=== PATIENT | male | born 1940 | race Caucasian/White ===

== ENCOUNTER 2018-08-23 09:53 | Inpatient (IN) | payer MEDICARE ==
[2018-08-23 09:53] VITALS: BMI 23.5
[2018-08-23] MEDS ORDERED: Sodium Chloride 0.9% 1,000 ML IV ONE (10:05)
[2018-08-23] MEDS ORDERED: Iohexol 240 (50 ml) PO ONE (10:07)
[2018-08-23] MEDS ORDERED: Morphine 4 MG/ML VIAL IV ONE (10:07)
[2018-08-23] MEDS ORDERED: Iohexol 240 (50 ml) ONE (10:35)
[2018-08-23 10:43] LABS: BASO # 0.1 K/uL (0.0-0.2); BASO % 0.6 % (0.0-2.0); EOS # 0.3 K/uL (0.0-0.7); EOS % 2.2 % (0.0-4.0); HEMOGLOBIN 14.4 g/dL (12.0-18.0); LYMPH # 1.8 K/uL (1.0-4.3); LYMPH % 15.6 % (20.0-40.0); MEAN CORPUSCULAR HEMOGLOBIN 28.5 pg (27.0-31.0); MEAN CORPUSCULAR HGB CONC 34.3 g/dL (33.0-37.0); MEAN PLATELET VOLUME 8.9 fL (7.2-11.7); MONO # 1.3 K/uL (0.0-0.8); MONO % 10.9 % (0.0-10.0); NEUT # 8.1 K/uL (1.8-7.0); NEUT % 70.7 % (50.0-75.0); NRBC % 0.1 % (0.0-2.0); RBC 5.06 Mil/uL (4.40-5.90); RED CELL DISTRIBUTION WIDTH 13.6 % (11.5-14.5); WHITE BLOOD COUNT 11.5 K/uL (4.8-10.8)
[2018-08-23 10:52] LABS: PROTHROMBIN TIME 10.9 SECONDS (9.7-12.2)
[2018-08-23 10:54] LABS: ALB/GLOB RATIO 1.3 (1.0-2.1); ALBUMIN 4.2 g/dL (3.5-5.0); ALT/SGPT 22 U/L (21-72); AST/SGOT 24 U/L (17-59); BLOOD UREA NITROGEN 14 mg/dL (9-20); CALCIUM 9.3 mg/dl (8.6-10.4); GFR NON-AFRICAN AMERICAN > 60; LIPASE 75 U/L (23-300)
--- NOTE | 2018-08-23 11:08 | C.PDOC ---
History Of Present Illness 77 y/o male, with history of right inguinal hernia, presents to ED complaining of abdominal pain. Patient states he woke up this morning with diffuse abdominal pain and bloating, with some difficulty passing gas. Patient denies vomiting. Time Seen by Provider: 08/23/18 10:00 Chief Complaint (Nursing): Abdominal Pain History Per: Patient History/Exam Limitations: no limitations Onset/Duration Of Symptoms: Hrs Current Symptoms Are (Timing): Still Present Past Medical History Reviewed: Historical Data, Nursing Documentation, Vital Signs Vital Signs: Last Vital Signs Temp 98.4 F 08/23/18 09:59 Pulse 87 08/23/18 09:59 Resp 14 08/23/18 09:59 BP 165/85 H 08/23/18 09:59 Pulse Ox 99 08/23/18 09:59 - Medical History PMH: Asthma (CHILDHOOD), Pneumonia (SEP 2013) Surgical History: Endoscopy, Tonsillectomy (CHILDHOOD) - [facility] Procedures LYMPHATIC STRUCT BIOPSY (02/14/14) Family History: States: No Known Family Hx - Social History Hx Tobacco Use: No Hx Alcohol Use: No Hx Substance Use: No - Immunization History Hx Tetanus Toxoid Vaccination: No Hx Influenza Vaccination: No Hx Pneumococcal Vaccination: No Review Of Systems Except As Marked, All Systems Reviewed And Found Negative. Gastrointestinal: Positive for: Abdominal Pain. Negative for: Vomiting Physical Exam - Physical Exam Appears: Non-toxic, No Acute Distress Skin: Warm, Dry Head: Atraumatic, Normacephalic Eye(s): bilateral: Normal Inspection Oral Mucosa: Moist Neck: Normal ROM Chest: Symmetrical Cardiovascular: Rhythm Regular, No Murmur Respiratory: Normal Breath Sounds, No Rales, No Rhonchi, No Wheezing Gastrointestinal/Abdominal: Bowel Sounds (normal), Soft, Tenderness (diffuse upper abdominal tenderness), No Guarding, No Rebound, Hernia (Right inguinal hernia partially reducible) Extremity: Bilateral: Atraumatic, Normal Color And Temperature, Normal ROM Neurological/Psych: Oriented x3, Normal Speech ED Course And Treatment - Laboratory Results Result Diagrams: 08/23/18 10:30 08/23/18 10:30 O2 Sat by Pulse Oximetry: 99 (RA) Pulse Ox Interpretation: Normal - CT Scan/US CT Abd/Pel Other Rad Studies (CT/US): Read By Radiologist, Radiology Report Reviewed CT/US Interpretation: FINDINGS: LOWER THORAX: Unremarkable. LIVER: Unremarkable. No gross lesion or ductal dilatation. GALLBLADDER AND BILE DUCTS: Unremarkable. PANCREAS: Unremarkable. No gross lesion or ductal dilatation. SPLEEN: Unremarkable. ADRENALS: Unremarkable. No mass. KIDNEYS AND URETERS: Unremarkable. No hydronephrosis. No solid mass. VASCULATURE: Unremarkable. No aortic aneurysm. There is minimal atherosclerotic calcification of the abdominal aorta. BOWEL: No bowel obstruction. Multiple herniated small bowel loops into the right hemiscrotum including the terminal ileum. Mild mesenteric edema in the segment of mesentery herniated into the right scrotum. Small hernia of the descending/sigmoid colonic junction into the left inguinal canal. Again, no evidence of obstruction. Mild sigmoid diverticulosis without evidence of diverticulitis. Atypical configuration of the large intestine with the cecum located in the pelvis and the distal transverse and descending colon displaced to the left abdomen. This is unchanged from prior examination, and likely represents a developmental variant. APPENDIX: Normal appendix. PERITONEUM: No ascites or pneumoperitoneum. Bilateral inguinal hernia. See above. LYMPH NODES: Unremarkable. No enlarged lymph nodes. BLADDER: Unremarkable. REPRODUCTIVE: Unremarkable prostate. BONES: No acute fracture. OTHER FINDINGS: None. IMPRESSION: Bilateral inguinal hernias. Multiple loops of small bowel in the right hemiscrotum with mild edema of the herniated mesentery. No bowel obstruction. Herniated loop of large intestine at junction of descending and sigmoid colon without evidence of obstruction. No other acute abnormality. Medical Decision Making Medical Decision Making: Plan: --CT Abd/Pel --Bloodwork --Urinalysis --Morphine 2 mg IVP --Omnipaque 50 ml PO --IV fluids 1L --Zofran 4 mg IVP 13:36 - Discussed with Dr. Harris (Surgery) who recommended to admit patient. Disposition Doctor Will See Patient In The: Hospital - Disposition Disposition: HOSPITALIZED Disposition Time: 16:00 Condition: GUARDED - POA Present On Arrival: None - Clinical Impression Clinical Impression: Abdominal pain, Inguinal hernia - Scribe Statement The provider has reviewed the documentation as recorded by the Arcelia Miller Provider Attestation: All medical record entries made by the Arcelia were at my direction and persona lly dictated by me. I have reviewed the chart and agree that the record accurately reflects my personal performance of the history, physical exam, medical decision making, and the department course for this patient. I have also personally directed, reviewed, and agree with the discharge instructions and disposition.
[2018-08-23] MEDS ORDERED: Iohexol 350mg/ml 100 ML ONE (11:24)
[2018-08-23 12:26] LABS: URINE BILIRUBIN NEGATIVE (NEGATIVE); URINE BLOOD NEGATIVE (NEGATIVE); URINE CLARITY Clear (Clear); URINE COLOR Straw (YELLOW); URINE GLUCOSE (UA) NORMAL (Normal); URINE LEUKOCYTE ESTERASE NEG Leu/uL (Negative); URINE PROTEIN NEGATIVE (NEGATIVE); URINE UROBILINOGEN NORMAL mg/dL (0.2-1.0)
--- NOTE | 2018-08-23 13:19 | CT ---
Date of service: 08/23/2018 PROCEDURE: CT Abdomen and Pelvis with contrast HISTORY: abd pain COMPARISON: 11/23/2012 TECHNIQUE: Contrast dose: 100 mL Visipaque 320 Radiation dose: Total exam DLP = 690.77 mGy-cm. This CT exam was performed using one or more of the following dose reduction techniques: Automated exposure control, adjustment of the mA and/or kV according to patient size, and/or use of iterative reconstruction technique. FINDINGS: LOWER THORAX: Unremarkable. LIVER: Unremarkable. No gross lesion or ductal dilatation. GALLBLADDER AND BILE DUCTS: Unremarkable. PANCREAS: Unremarkable. No gross lesion or ductal dilatation. SPLEEN: Unremarkable. ADRENALS: Unremarkable. No mass. KIDNEYS AND URETERS: Unremarkable. No hydronephrosis. No solid mass. VASCULATURE: Unremarkable. No aortic aneurysm. There is minimal atherosclerotic calcification of the abdominal aorta. BOWEL: No bowel obstruction. Multiple herniated small bowel loops into the right hemiscrotum including the terminal ileum. Mild mesenteric edema in the segment of mesentery herniated into the right scrotum. Small hernia of the descending/sigmoid colonic junction into the left inguinal canal. Again, no evidence of obstruction. Mild sigmoid diverticulosis without evidence of diverticulitis. Atypical configuration of the large intestine with the cecum located in the pelvis and the distal transverse and descending colon displaced to the left abdomen. This is unchanged from prior examination, and likely represents a developmental variant. APPENDIX: Normal appendix. PERITONEUM: No ascites or pneumoperitoneum. Bilateral inguinal hernia. See above. LYMPH NODES: Unremarkable. No enlarged lymph nodes. BLADDER: Unremarkable. REPRODUCTIVE: Unremarkable prostate BONES: No acute fracture. OTHER FINDINGS: None. IMPRESSION: Bilateral inguinal hernias. Multiple loops of small bowel in the right hemiscrotum with mild edema of the herniated mesentery. No bowel obstruction. Herniated loop of large intestine at junction of descending and sigmoid colon without evidence of obstruction. No other acute abnormality.
[2018-08-23] MEDS ORDERED: Piperacillin/Tazobact 3.375 GM in Sodium Chloride 100 ML IVPB STA (13:40)
--- NOTE | 2018-08-23 14:51 | CP.PCM.CON ---
History of Present Illness - History of Present Illness History of Present Illness: Surgery Consult Note. Dr. Harris CC: B/L ventral hernias 77yo M with PMHx of B-Cell Lymphoma (s/p chemo x6 rounds w remission) here for evaluation of abdominal pain. Pain started this morning, located in the RLQ and right inguinal region. Patient states that he felt bloated this morning after eating breakfast. He reports having a right inguinal hernia for many years and has never caused him any pain until today. He is usually able to reduce the right inguinal hernia himself but was unable to do it this morning due to pain. He denies any nausea or vomiting. He does report flatus. Last BM was last night, non-bloody, normal caliber. Denies any fevers or chills. Currently, the abdominal pain has subsided and he states that his abdominal distention has also resolved. Denies any urinary complaints. No CP/SOB. In ED, CT w contrast was performed with evidence of b/l inguinal hernias R>L with associated bowel messentary edema. General Surgery consult was obtained. PMD: Minerva Jang PMHx: B-Cell Lymphoma(s/p chemo x6 rounds w remission) PSHx: Right cervical lymph node excisional biopsy (B-Cell Lymphoma) Family Hx: non-contributory Social Hx: Lives with . Denies Tobacco use; Denies ETOH use; Denies illicit drugs NKDA Review of Systems - Review of Systems All systems: reviewed and no additional remarkable complaints except - Constitutional Constitutional: absent: Chills, Fever - EENT Eyes: absent: Change in Vision Ears: absent: Ear Discharge Nose/Mouth/Throat: absent: Nasal Discharge - Cardiovascular Cardiovascular: absent: Chest Pain, Dyspnea - Respiratory Respiratory: absent: Cough, Dyspnea - Gastrointestinal Gastrointestinal: Abdominal Pain, Bloating. absent: Diarrhea, Hematemesis, Hematochezia, Nausea, Vomiting - Genitourinary Genitourinary: absent: Difficulty Urinating, Dysuria Past Patient History - Past Medical History & Family History Past Medical History?: Yes Past Family History: Reviewed and not pertinent - Past Social History Smoking Status: Never Smoked Alcohol: None Drugs: Denies Home Situation {Lives}: With Family - PULMONARY Hx Asthma: Yes (CHILDHOOD) Hx Pneumonia: Yes (SEP 2013) - MUSCULOSKELETAL/RHEUMATOLOGICAL Hx Musculoskeletal Disorders: Yes Hx Degenerative Joint Disease: Yes Hx Osteoarthritis: Yes - GASTROINTESTINAL Hx Gastrointestinal Disorders: Yes Hx Gastroesophageal Reflux: Yes - PSYCHIATRIC Hx Substance Use: No - SURGICAL HISTORY Hx Tonsillectomy: Yes (CHILDHOOD) - ANESTHESIA Hx Anesthesia: Yes Hx Anesthesia Reactions: No Meds Allergies/Adverse Reactions: Allergies Allergy/AdvReac Type Severity Reaction Status Date / Time No Known Allergies Allergy Verified 06/30/14 20:52 - Medications Medications: Current Medications Sodium Chloride (Sodium Chloride 0.9%) 1,000 mls @ 100 mls/hr IV .Q10H ONE Stop: 08/23/18 20:04 Last Admin: 08/23/18 10:05 Dose: 100 mls/hr Physical Exam - Constitutional Appears: Well, Non-toxic, No Acute Distress - Head Exam Head Exam: ATRAUMATIC, NORMAL INSPECTION, NORMOCEPHALIC - Eye Exam Eye Exam: EOMI, Normal appearance. absent: Scleral icterus - ENT Exam ENT Exam: Mucous Membranes Moist - Respiratory Exam Respiratory Exam: Clear to Auscultation Bilateral, NORMAL BREATHING PATTERN. absent: Accessory Muscle Use, Respiratory Distress - Cardiovascular Exam Cardiovascular Exam: absent: JVD - GI/Abdominal Exam GI & Abdominal Exam: Hernia (right inguinal hernia reducible, no skin changes. Left inguinal hernia. ), Soft. absent: Distended, Firm, Guarding, Tenderness - Exam Exam: NORMAL INSPECTION. absent: Scrotal Swelling - Extremities Exam Extremities exam: Positive for: normal inspection. Negative for: calf tenderness - Neurological Exam Neurological exam: Alert, Oriented x3 - Psychiatric Exam Psychiatric exam: Normal Affect, Normal Mood - Skin Skin Exam: Dry, Intact, Normal Color, Warm Results - Vital Signs Recent Vital Signs: Last Vital Signs Temp 98.4 F 08/23/18 09:59 Pulse 95 H 08/23/18 14:31 Resp 18 08/23/18 14:31 BP 153/95 H 08/23/18 14:31 Pulse Ox 98 08/23/18 14:31 - Labs Result Diagrams: 08/23/18 10:30 08/23/18 10:30 Labs: Laboratory Results - last 24 hr 08/23/18 08/23/18 08/23/18 10:30 10:30 10:30 WBC 11.5 H RBC 5.06 Hgb 14.4 Hct 42.0 MCV 83.0 MCH 28.5 MCHC 34.3 RDW 13.6 Plt Count 230 MPV 8.9 Neut % (Auto) 70.7 Lymph % (Auto) 15.6 L [place] % (Auto) 10.9 H Eos % (Auto) 2.2 Baso % (Auto) 0.6 Neut # (Auto) 8.1 H Lymph # (Auto) 1.8 [place] # (Auto) 1.3 H Eos # (Auto) 0.3 Baso # (Auto) 0.1 PT 10.9 INR 1.0 APTT 31 Sodium 136 Potassium 3.8 Chloride 98 Carbon Dioxide 28 Anion Gap 14 BUN 14 Creatinine 0.8 Est GFR ( Amer) > 60 Est GFR (Non-Af Amer) > 60 Random Glucose 125 H Lactic Acid Calcium 9.3 Total Bilirubin 0.6 AST 24 ALT 22 Alkaline Phosphatase 104 Total Protein 7.4 Albumin 4.2 Globulin 3.2 Albumin/Globulin Ratio 1.3 Lipase 75 Urine Color Urine Clarity Urine pH Ur Specific [place] Urine Protein Urine Glucose (UA) Urine Ketones Urine Blood Urine Nitrate Urine Bilirubin Urine Urobilinogen Ur Leukocyte Esterase Urine WBC (Auto) Urine RBC (Auto) Blood Type 08/23/18 08/23/18 08/23/18 12:19 14:05 14:05 WBC RBC Hgb Hct MCV MCH MCHC RDW Plt Count MPV Neut % (Auto) Lymph % (Auto) [place] % (Auto) Eos % (Auto) Baso % (Auto) Neut # (Auto) Lymph # (Auto) [place] # (Auto) Eos # (Auto) Baso # (Auto) PT INR APTT Sodium Potassium Chloride Carbon Dioxide Anion Gap BUN Creatinine Est GFR ( Amer) Est GFR (Non-Af Amer) Random Glucose Lactic Acid 1.5 Calcium Total Bilirubin AST ALT Alkaline Phosphatase Total Protein Albumin Globulin Albumin/Globulin Ratio Lipase Urine Color Straw Urine Clarity Clear Urine pH 7.0 Ur Specific [place] 1.011 Urine Protein Negative Urine Glucose (UA) Normal Urine Ketones Negative Urine Blood Negative Urine Nitrate Negative Urine Bilirubin Negative Urine Urobilinogen Normal Ur Leukocyte Esterase Neg Urine WBC (Auto) < 1 Urine RBC (Auto) 1 Blood Type O POSITIVE Assessment & Plan - Assessment and Plan (Free Text) Assessment: 77yo M with b/l reducible inguinal hernias - CT abd/pelvis noted Plan: - NPO past mn - To OR tomorrow morning, 08/24 - f/u Cardiac clearance - f/u AM labs Further recs as per Dr. Steven Lyn PGY2 surgery
[2018-08-23] MEDS ORDERED: Piperacillin/Tazobact 3.375 gm 100 ML IVPB ONE (15:00)
--- NOTE | 2018-08-23 17:41 | RAD ---
Date of service: 08/23/2018 PROCEDURE: CHEST RADIOGRAPH, 1 VIEW HISTORY: admit COMPARISON: 02/10/2014 FINDINGS: LUNGS: Clear. PLEURA: No pneumothorax or pleural fluid seen. CARDIOVASCULAR: No aortic atherosclerotic calcification present. Normal. OSSEOUS STRUCTURES: No significant abnormalities. VISUALIZED UPPER ABDOMEN: Normal. OTHER FINDINGS: None. IMPRESSION: No active disease.
[2018-08-23] MEDS: Piperacillin/Tazobact 3.375 GM in Sodium Chloride 100 ML IVPB SCH (21:15)
--- NOTE | 2018-08-23 21:20 | CP.PCM.HP ---
Past Patient History - Past Medical History & Family History Past Medical History?: Yes Past Family History: Reviewed and not pertinent - Past Social History Smoking Status: Never Smoked Alcohol: None Drugs: Denies Home Situation {Lives}: With Family - PULMONARY Hx Asthma: Yes (CHILDHOOD) Hx Pneumonia: Yes (SEP 2013) - MUSCULOSKELETAL/RHEUMATOLOGICAL Hx Musculoskeletal Disorders: Yes Hx Degenerative Joint Disease: Yes Hx Osteoarthritis: Yes - GASTROINTESTINAL Hx Gastrointestinal Disorders: Yes Hx Gastroesophageal Reflux: Yes - PSYCHIATRIC Hx Substance Use: No - SURGICAL HISTORY Hx Tonsillectomy: Yes (CHILDHOOD) - ANESTHESIA Hx Anesthesia: Yes Hx Anesthesia Reactions: No Meds Allergies/Adverse Reactions: Allergies Allergy/AdvReac Type Severity Reaction Status Date / Time No Known Allergies Allergy Verified 06/30/14 20:52 Physical Exam - Constitutional Appears: Well - Head Exam Head Exam: ATRAUMATIC, NORMAL INSPECTION, NORMOCEPHALIC - Eye Exam Eye Exam: EOMI, Normal appearance, PERRL Pupil Exam: NORMAL ACCOMODATION, PERRL - ENT Exam ENT Exam: Mucous Membranes Moist, Normal Exam - Neck Exam Neck exam: Positive for: Normal Inspection - Respiratory Exam Respiratory Exam: Decreased Breath Sounds - Cardiovascular Exam Cardiovascular Exam: REGULAR RHYTHM, +S1, +S2 - GI/Abdominal Exam GI & Abdominal Exam: Diminished Bowel Sounds, Soft - Rectal Exam Rectal Exam: Deferred Results - Vital Signs Recent Vital Signs: Last Vital Signs Temp 98.1 F 08/23/18 16:44 Pulse 87 08/23/18 16:44 Resp 20 08/23/18 16:44 BP 153/82 H 08/23/18 16:44 Pulse Ox 99 08/23/18 17:09 - Labs Result Diagrams: 08/23/18 10:30 08/23/18 10:30 Labs: Laboratory Results - last 24 hr 08/23/18 08/23/18 08/23/18 10:30 10:30 10:30 WBC 11.5 H RBC 5.06 Hgb 14.4 Hct 42.0 MCV 83.0 MCH 28.5 MCHC 34.3 RDW 13.6 Plt Count 230 MPV 8.9 Neut % (Auto) 70.7 Lymph % (Auto) 15.6 L [place] % (Auto) 10.9 H Eos % (Auto) 2.2 Baso % (Auto) 0.6 Neut # (Auto) 8.1 H Lymph # (Auto) 1.8 [place] # (Auto) 1.3 H Eos # (Auto) 0.3 Baso # (Auto) 0.1 PT 10.9 INR 1.0 APTT 31 Sodium 136 Potassium 3.8 Chloride 98 Carbon Dioxide 28 Anion Gap 14 BUN 14 Creatinine 0.8 Est GFR ( Amer) > 60 Est GFR (Non-Af Amer) > 60 Random Glucose 125 H Lactic Acid Calcium 9.3 Total Bilirubin 0.6 AST 24 ALT 22 Alkaline Phosphatase 104 Total Protein 7.4 Albumin 4.2 Globulin 3.2 Albumin/Globulin Ratio 1.3 Lipase 75 Urine Color Urine Clarity Urine pH Ur Specific [place] Urine Protein Urine Glucose (UA) Urine Ketones Urine Blood Urine Nitrate Urine Bilirubin Urine Urobilinogen Ur Leukocyte Esterase Urine WBC (Auto) Urine RBC (Auto) Blood Type Antibody Screen 08/23/18 08/23/18 08/23/18 12:19 14:05 14:05 WBC RBC Hgb Hct MCV MCH MCHC RDW Plt Count MPV Neut % (Auto) Lymph % (Auto) [place] % (Auto) Eos % (Auto) Baso % (Auto) Neut # (Auto) Lymph # (Auto) [place] # (Auto) Eos # (Auto) Baso # (Auto) PT INR APTT Sodium Potassium Chloride Carbon Dioxide Anion Gap BUN Creatinine Est GFR ( Amer) Est GFR (Non-Af Amer) Random Glucose Lactic Acid 1.5 Calcium Total Bilirubin AST ALT Alkaline Phosphatase Total Protein Albumin Globulin Albumin/Globulin Ratio Lipase Urine Color Straw Urine Clarity Clear Urine pH 7.0 Ur Specific [place] 1.011 Urine Protein Negative Urine Glucose (UA) Normal Urine Ketones Negative Urine Blood Negative Urine Nitrate Negative Urine Bilirubin Negative Urine Urobilinogen Normal Ur Leukocyte Esterase Neg Urine WBC (Auto) < 1 Urine RBC (Auto) 1 Blood Type O POSITIVE Antibody Screen Negative
--- NOTE | 2018-08-24 00:49 | CON ---
DATE: 08/23/2018 CARDIOLOGY CONSULTATION REASON FOR CONSULTATION: Preoperative evaluation. HISTORY OF PRESENT ILLNESS: The patient is a 77-year-old [place] male who has no known prior cardiac history and had a history of low-grade B-cell lymphoma, diagnosed with lymph node biopsy in 2013. The patient underwent six cycles of chemotherapy by his oncologist Dr. Levin, and is currently lymphoma 3. The patient was admitted for right groin pain from preexisting right inguinal hernia. The patient denies any chest pain. He does have cold or flue-like symptoms. MEDICATIONS: The patient is on normal saline 100 mL/hour. HOME MEDICATIONS: The patient is on no home medications. REVIEW OF SYSTEMS: No fever or chills. No nausea or vomiting. No dizziness or syncope. PHYSICAL EXAMINATION GENERAL: The patient is an elderly male, who does not appear to be in acute distress. VITAL SIGNS: Blood pressure 152/82, heart rate 87, temperature 98.1, respirations 20. HEENT: Normocephalic. NECK: No JVD. CHEST: Clear. HEART: S1, S2 regular. ABDOMEN: Soft. EXTREMITIES: No edema. LABORATORY DATA: Today's SMA-7 is within normal limits except for glucose 125, liver enzymes are within normal limits, lipase is within normal limit. PT, PTT, and INR is within normal limit. Hemoglobin and hematocrit 14.4 and 42.2, white count 11.5, platelet count 130,000. ASSESSMENT: 1. Right inguinal hernia. 2. History of low-grade B-cell lymphoma in 2013. RECOMMENDATIONS: Continue current IV fluid infusion. Obtain a preoperative EKG and an echocardiogram. Jayy Velasquez MD
[2018-08-24] MEDS: Piperacillin/Tazobact 3.375 GM in Sodium Chloride 100 ML IVPB SCH ×4 (04:15→20:25)
[2018-08-24 06:27] LABS: BASO # 0.1 K/uL (0.0-0.2); BASO % 0.7 % (0.0-2.0); EOS # 0.1 K/uL (0.0-0.7); EOS % 1.1 % (0.0-4.0); HEMOGLOBIN 14.8 g/dL (12.0-18.0); LYMPH # 2.3 K/uL (1.0-4.3); LYMPH % 19.8 % (20.0-40.0); MEAN CELL VOLUME 83.2 fL (80.0-94.0); MEAN CORPUSCULAR HEMOGLOBIN 27.6 pg (27.0-31.0); MEAN CORPUSCULAR HGB CONC 33.1 g/dL (33.0-37.0); MEAN PLATELET VOLUME 8.9 fL (7.2-11.7); MONO # 1.4 K/uL (0.0-0.8); MONO % 11.6 % (0.0-10.0); NEUT # 7.8 K/uL (1.8-7.0); NEUT % 66.8 % (50.0-75.0); RBC 5.36 Mil/uL (4.40-5.90); RED CELL DISTRIBUTION WIDTH 13.6 % (11.5-14.5); WHITE BLOOD COUNT 11.7 K/uL (4.8-10.8)
[2018-08-24 06:46] LABS: BLOOD UREA NITROGEN 11 mg/dL (9-20); CALCIUM 9.1 mg/dl (8.6-10.4); GFR NON-AFRICAN AMERICAN > 60
[2018-08-24 06:51] LABS: AST/SGOT 29 U/L (17-59)
[2018-08-24 06:52] LABS: ALBUMIN 4.3 g/dL (3.5-5.0); ALT/SGPT 25 U/L (21-72)
[2018-08-24 07:00] LABS: ALB/GLOB RATIO 1.2 (1.0-2.1)
[2018-08-24] MEDS ORDERED: Lidocaine/Epinephrine 1% 1:100000 10 ML IJ ONE (07:21)
[2018-08-24] MEDS ORDERED: Propofol 10 mg/ml Inj (20 ML) ONE (07:49)
[2018-08-24] MEDS ORDERED: Midazolam 2 MG/2 ML VIAL ONE (07:49)
[2018-08-24] MEDS: Bupivacaine 0.25% 20 ML INJ IJ ONE ×2 (08:06→10:00)
[2018-08-24] MEDS: ceFAZolin 1 gm in NS 1 GM/100 ML BAG IVPB ONE ×2 (08:10→08:16)
[2018-08-24] MEDS: ceFAZolin 1 gm FROZEN Premix 1 GM/50 ML ML IVPB ONE ×2 (08:10→08:16)
[2018-08-24] MEDS ORDERED: Neostigmine Methylsulfate 3mg/3ml Syringe IV ONE (10:31)
[2018-08-24] MEDS ORDERED: Rocuronium 10 mg/ml (5 ml) ONE (10:31)
--- NOTE | 2018-08-24 10:58 | PCM.SURG1 ---
Surgeon's Initial Post Op Note - Surgeon's Notes Surgeon: Steven Medical Records Manager: PGY4 Type of Anesthesia: General Endo, Block Regional Pre-Operative Diagnosis: Bilateral inguinal hernias Operative Findings: large bilateral inguinal hernias Post-Operative Diagnosis: Bilateral inguinal hernias Operation Performed: Robotic assisted bilateral inguinal hernia repair with mesh Specimen/Specimens Removed: R Hernia contents (lipoma), L hernia contents (lipoma) Estimated Blood Loss: EBL {In ML}: 15 Blood Products Given: N/A Drains Used: No Drains Post-Op Condition: Good Date of Surgery/Procedure: 08/24/18 Time of Surgery/Procedure: 07:45
[2018-08-24] MEDS ORDERED: Labetalol 5mg/ml (4ml) IVP PRN (11:24)
[2018-08-24] MEDS ORDERED: Oxycodone/Acetaminophen 5/325 mg Tab PO PRN (11:45)
[2018-08-24] MEDS ORDERED: Lactated Ringer's 1,000 ML IV ONE (11:52)
--- NOTE | 2018-08-24 14:29 | CP.PCM.PN ---
Subjective - Date & Time of Evaluation Date of Evaluation: 08/24/18 Time of Evaluation: 07:45 - Subjective Subjective: clinically same Objective - Vital Signs/Intake and Output Vital Signs (last 24 hours): Temp Pulse Resp BP Pulse Ox 98.6 F 78 11 L 141/78 100 08/24/18 13:22 08/24/18 13:22 08/24/18 13:22 08/24/18 13:22 08/24/18 13:22 Intake and Output: 08/24/18 08/24/18 06:59 18:59 Intake Total 100 1150 Output Total 110 Balance 100 1040 - Medications Medications: Current Medications Docusate Sodium (Colace) 100 mg PO BID [facility] Piperacillin Sod/Tazobactam (Sod 3.375 gm/ Sodium Chloride) 100 mls @ 200 mls/hr IVPB Q8H [facility]; Protocol Last Admin: 08/24/18 13:57 Dose: 200 mls/hr Morphine Sulfate (Morphine) 4 mg IVP Q4 PRN PRN Reason: Pain, severe (8-10) Ondansetron HCl (Zofran Inj) 4 mg IVP Q4H PRN PRN Reason: Nausea/Vomiting Oxycodone/Acetaminophen (Percocet 5/325 Mg Tab) 1 tab PO Q6H PRN PRN Reason: Pain, moderate (4-7) Stop: 08/27/18 11:46 Sennosides (Senokot Tab) 8.6 mg PO DAILY [facility] Last Admin: 08/24/18 13:57 Dose: 8.6 mg - Labs Labs: 08/24/18 06:19 08/24/18 06:19 PT 10.9 SECONDS (9.7-12.2) 08/23/18 10:30 INR 1.0 08/23/18 10:30 APTT 31 SECONDS (21-34) 08/23/18 10:30 - Constitutional Appears: Well - Head Exam Head Exam: ATRAUMATIC, NORMAL INSPECTION, NORMOCEPHALIC - Eye Exam Eye Exam: EOMI, Normal appearance, PERRL Pupil Exam: NORMAL ACCOMODATION, PERRL - ENT Exam ENT Exam: Mucous Membranes Moist, Normal Exam - Neck Exam Neck Exam: Full ROM, Normal Inspection. absent: Lymphadenopathy - Respiratory Exam Respiratory Exam: Decreased Breath Sounds - Cardiovascular Exam Cardiovascular Exam: REGULAR RHYTHM, +S1, +S2 - GI/Abdominal Exam GI & Abdominal Exam: Soft, Diminished Bowel Sounds - Rectal Exam Rectal Exam: Deferred Assessment and Plan (1) Abdominal pain Status: Acute (2) Inguinal hernia Status: Acute (3) Palpitations Status: Acute - Assessment and Plan (Free Text) Plan: Patient underwent surgery today discussed with son and a surgical doctor Continue IV Zosyn IV morphine Patient is little sleepy because of surgery Possible discharge tomorrow morning
[2018-08-24 16:43] VITALS: RESP 20
--- NOTE | 2018-08-24 19:04 | PN ---
DATE: 08/24/2018 SUBJECTIVE: The patient underwent bilateral inguinal hernia repair, but he denies any chest pain. He is complaining of nausea. PHYSICAL EXAMINATION: VITAL SIGNS: Blood pressure 141/78, heart rate 78, temperature 98.6, and respirations 11. HEENT: Normocephalic. CHEST: Clear. HEART: S1, S2 regular. EXTREMITIES: No edema. EKG reveals sinus rhythm with occasional PVCs. LABORATORY DATA: Today's SMA-7 is within normal limits, except for glucose of 128. Today's hemoglobin and hematocrit are within normal limits. White count 11.7, platelet count 243,000. ASSESSMENT: 1. Status post inguinal hernia repair. 2. History of B-cell lymphoma. RECOMMENDATIONS: Continue current Zofran 4 mg intravenously every 4 hours p.r.n. Continue IV Zosyn at 3.375 g intravenously every 8 hours. Jayy Velasquez MD
--- NOTE | 2018-08-24 20:43 | OP ---
PROCEDURE DATE: 08/24/2018 PREOPERATIVE DIAGNOSES: 1. Incarcerated right inguinal hernia. 2. Abdominal pain. 3. Possible left inguinal hernia. POSTOPERATIVE DIAGNOSES: 1. Incarcerated bilateral inguinal hernia containing small bowel and the omentum. 2. Extensive peritoneal and pelvic adhesions. 3. Large lipoma of the bilateral direct hernial sac. PROCEDURES PERFORMED: 1. Robotic bilateral inguinal hernia repair with mesh. 2. Robotic extensive enterolysis and lysis of adhesion. 3. Laparoscopic bilateral transverse abdominis plane block placement. SURGEON: Dameon Harris MD. SHIRT FOLDER: Tristan Justin DO, PGY-4, resident. ANESTHESIA: General endotracheal tube anesthesia. ESTIMATED BLOOD LOSS: Around 10 mL. DRAIN: None. PATHOLOGY: The lipoma of the sac of the right and left side was sent for the pathology. COMPLICATIONS: None. INTRAOPERATIVE FINDINGS: The patient had extremely large right direct inguinal hernia containing large lipoma of the sac and the patient also had incarcerated small bowel as well as omentum in the right side and the part of the omentum was incarcerated in the left side and in the left side, the patient also had a large direct hernia. DESCRIPTION OF PROCEDURE: On intraoperative steps, this is 77-year-old male who was diagnosed with right incarcerated inguinal hernia and the patient was consented for the robotic bilateral inguinal hernia repair with mesh and brought to the OR, placed supine on operating table. After induction of the anesthesia, the abdomen was prepped and draped in usual sterile fashion. The supraumbilical incision was made and using the open technique, the camera port was placed. Pneumo was created. Another 3 mm port was placed in upper abdomen. Robot was brought in. Camera arm as well as arm 1 and arm 2 was docked and the patient found to have small bowel as well as omentum was incarcerated and first small bowel as well as omentum was reduced back into the peritoneal cavity and lysis of adhesion was done in order to complete reduction. Now, the peritoneum was incised from the left ASIS up to the right ASIS. The midline dissection was done up to the space of Retzius. Laterally, the peritoneum was dissected from the lateral abdominal wall. The vas deferens and the spermatic cord vessels was identified and the large direct hernial sac was reduced back into the peritoneal cavity. The continued dissection was done in the pelvis as well as up to the pelvic brim and the large lipoma of the sac was also reduced and the part of the sac was resected and it was sent off the table for the pathology. Now, the similar dissection was done on the left side and the peritoneum was from the lateral abdominal wall. The vas deferens and spermatic cord vessels was from the peritoneal reflection and the large sac was also reduced on the left side and the lipoma of the sac was also reduced and the part of the sac was resected. Now, both sides, the transversalis fascia was everted and it was tacked in the midline to prevent the mesh herniation and now the right and left anatomical mesh was placed, both mesh was implanted. After proper implantation of the mesh, the peritoneum was sutured with 0 Vicryl as well as 3-0 PDS continuous suture and now the procedure was converted to laparoscopic after removing the instrument and undocking the robot. The bilateral 30:30 mL of Marcaine was injected in the transverse abdominal muscle plane area and after proper TAP block, all the instruments were taken out. All the ports were taken out under vision. Pneumo was deflated. Umbilical port site was closed in two layers, the fascia with 0 Vicryl interrupted sutures, skin with 4-0 Monocryl at all the port sites and dry sterile dressing was applied. The patient tolerated the procedure well. Count of instrument and gauze was correct. There was no apparent complication. Dameon Harris MD
[2018-08-25] MEDS: Piperacillin/Tazobact 3.375 GM in Sodium Chloride 100 ML IVPB SCH ×2 (04:53→12:54)
--- NOTE | 2018-08-25 06:17 | CP.PCM.PN ---
Subjective - Date & Time of Evaluation Date of Evaluation: 08/25/18 Time of Evaluation: 06:08 - Subjective Subjective: Gen Sx: Dr Harris Pt S&E. Doing well post-operatively. +flatus. Voiding independently. Has been OOB and ambulating. Pain well controlled. Tolerating diet. Denies n/v, f/c, sob or chest pain. All post operative questions answered to pt and . Objective - Vital Signs/Intake and Output Vital Signs (last 24 hours): Temp Pulse Resp BP Pulse Ox 98 F 73 20 130/79 95 08/25/18 00:00 08/25/18 00:00 08/25/18 00:00 08/25/18 00:00 08/25/18 00:00 Intake and Output: 08/24/18 08/25/18 18:59 06:59 Intake Total 2450 Output Total 110 Balance 2340 - Medications Medications: Current Medications Docusate Sodium (Colace) 100 mg PO BID [facility] Last Admin: 08/24/18 17:18 Dose: 100 mg Piperacillin Sod/Tazobactam (Sod 3.375 gm/ Sodium Chloride) 100 mls @ 200 mls/hr IVPB Q8H [facility]; Protocol Last Admin: 08/25/18 04:53 Dose: 200 mls/hr Morphine Sulfate (Morphine) 4 mg IVP Q4 PRN PRN Reason: Pain, severe (8-10) Ondansetron HCl (Zofran Inj) 4 mg IVP Q4H PRN PRN Reason: Nausea/Vomiting Oxycodone/Acetaminophen (Percocet 5/325 Mg Tab) 1 tab PO Q6H PRN PRN Reason: Pain, moderate (4-7) Stop: 08/27/18 11:46 Last Admin: 08/24/18 23:54 Dose: 1 tab Sennosides (Senokot Tab) 8.6 mg PO DAILY [facility] Last Admin: 08/24/18 14:44 Dose: Not Given - Labs Labs: 08/24/18 06:19 08/24/18 06:19 PT 10.9 SECONDS (9.7-12.2) 08/23/18 10:30 INR 1.0 08/23/18 10:30 APTT 31 SECONDS (21-34) 08/23/18 10:30 - Constitutional Appears: Non-toxic - Head Exam Head Exam: NORMAL INSPECTION - Eye Exam Eye Exam: Normal appearance - ENT Exam ENT Exam: Mucous Membranes Dry - Respiratory Exam Respiratory Exam: absent: Respiratory Distress - Cardiovascular Exam Cardiovascular Exam: absent: Tachycardia - GI/Abdominal Exam GI & Abdominal Exam: Soft. absent: Tenderness Additional comments: dressings c/d/i - Extremities Exam Extremities Exam: absent: Pedal Edema - Neurological Exam Neurological Exam: Alert, Awake, Oriented x3 Assessment and Plan - Assessment and Plan (Free Text) Assessment: 77M s/p robotic inguinal hernia repair Plan: doing well clear for discharge follow up in Dr Harris's office in 1 week will d/w Dr Steven Valadez, PGY4
[2018-08-25 06:39] LABS: BASO # 0.1 K/uL (0.0-0.2); BASO % 0.7 % (0.0-2.0); EOS % 0.4 % (0.0-4.0); HEMOGLOBIN 13.3 g/dL (12.0-18.0); LYMPH # 1.5 K/uL (1.0-4.3); LYMPH % 14.1 % (20.0-40.0); MEAN CELL VOLUME 82.9 fL (80.0-94.0); MEAN CORPUSCULAR HEMOGLOBIN 27.4 pg (27.0-31.0); MEAN CORPUSCULAR HGB CONC 33.1 g/dL (33.0-37.0); MEAN PLATELET VOLUME 9.1 fL (7.2-11.7); MONO # 1.5 K/uL (0.0-0.8); MONO % 14.1 % (0.0-10.0); NEUT # 7.4 K/uL (1.8-7.0); NEUT % 70.7 % (50.0-75.0); NRBC % 0.1 % (0.0-2.0); RBC 4.85 Mil/uL (4.40-5.90); RED CELL DISTRIBUTION WIDTH 13.5 % (11.5-14.5); WHITE BLOOD COUNT 10.5 K/uL (4.8-10.8)
[2018-08-25 07:40] LABS: ALB/GLOB RATIO 1.3 (1.0-2.1); ALBUMIN 3.7 g/dL (3.5-5.0); ALT/SGPT 25 U/L (21-72); AST/SGOT 21 U/L (17-59); BLOOD UREA NITROGEN 11 mg/dL (9-20); CALCIUM 7.8 mg/dl (8.6-10.4); GFR NON-AFRICAN AMERICAN > 60
--- NOTE | 2018-08-25 08:37 | CARD ---
APPROVED REPORT Date of service: 08/23/2018 EKG Measurement Heart [id number] <Conclusion> Sinus rhythm with premature atrial complexes Otherwise normal ECG
--- NOTE | 2018-08-25 11:54 | CP.PCM.PN ---
Subjective - Date & Time of Evaluation Date of Evaluation: 08/25/18 Time of Evaluation: 10:00 Objective - Vital Signs/Intake and Output Vital Signs (last 24 hours): Temp Pulse Resp BP Pulse Ox 99.5 F 101 H 20 187/95 H 96 08/25/18 08:00 08/25/18 08:00 08/25/18 08:00 08/25/18 08:00 08/25/18 08:00 Intake and Output: 08/25/18 08/25/18 06:59 18:59 Intake Total 250 Output Total 550 Balance -300 - Medications Medications: Current Medications Docusate Sodium (Colace) 100 mg PO BID [facility] Last Admin: 08/25/18 10:05 Dose: 100 mg Piperacillin Sod/Tazobactam (Sod 3.375 gm/ Sodium Chloride) 100 mls @ 200 mls/hr IVPB Q8H [facility]; Protocol Last Admin: 08/25/18 04:53 Dose: 200 mls/hr Morphine Sulfate (Morphine) 4 mg IVP Q4 PRN PRN Reason: Pain, severe (8-10) Ondansetron HCl (Zofran Inj) 4 mg IVP Q4H PRN PRN Reason: Nausea/Vomiting Oxycodone/Acetaminophen (Percocet 5/325 Mg Tab) 1 tab PO Q6H PRN PRN Reason: Pain, moderate (4-7) Stop: 08/27/18 11:46 Last Admin: 08/24/18 23:54 Dose: 1 tab Sennosides (Senokot Tab) 8.6 mg PO DAILY [facility] Last Admin: 08/25/18 10:05 Dose: 8.6 mg - Labs Labs: 08/25/18 06:30 08/25/18 06:30 PT 10.9 SECONDS (9.7-12.2) 08/23/18 10:30 INR 1.0 08/23/18 10:30 APTT 31 SECONDS (21-34) 08/23/18 10:30 Assessment and Plan (1) Abdominal pain Status: Acute (2) Inguinal hernia Status: Acute (3) Palpitations Status: Acute - Assessment and Plan (Free Text) Plan: Possible discharge today Continue same Spoke to the son Spoke to the nurse discharged today
[2018-08-25] MEDS ORDERED: Pneumococcal 23-Valent Vaccine IM ONE (13:58)
[2018-08-25] MEDS ORDERED: Influenza Vaccine 60 MCG/0.5 ML SYR (3 yr & up) IM ONE (14:01)
[2018-08-25] MEDS ORDERED: Albuterol-Ipratrop 3 mg / 0.5 (3 ml) UD INH ONE (14:30)
[2018-08-25 15:27] VITALS: BP 163/84; PULSE 105; TEMP 99.4; O2SAT 95
--- NOTE | 2018-08-25 19:31 | PN ---
DATE: 08/25/2018 SUBJECTIVE: The patient denies any chest pain, palpitation, or nausea. PHYSICAL EXAMINATION: VITAL SIGNS: Blood pressure 163/85, heart rate 105, temperature 99.4, and respirations 20. HEENT: Normocephalic. CHEST: Clear. HEART: S1, S2 regular. ABDOMEN: Diminished bowel sounds. EXTREMITIES: No edema. LABORATORY DATA: Today's hemoglobin, hematocrit, white count, and platelet count are within normal limits. Today's SMA-7; sodium 131, potassium 4.1, chloride 97, CO2 26, glucose 114, BUN 11, and creatinine 0.9. ASSESSMENT: 1. Status post inguinal hernia repair. 2. History of B-cell lymphoma. 3. Mild hyponatremia. RECOMMENDATIONS: Continue current IV Zosyn. Continue oral Percocet p.r.n. Continue Colace 100 mg twice a day. No further cardiac workup is indicated at this point. Jayy Velasquez MD
== END 2018-08-25 17:10 | disposition home or self-care (01) | DRG 351 ==
LOC: C.ER 09:53 → C.9E 13:42 → C.3T 14:50
PROVIDERS: ADMIT Internal Medicine Nephrology; ATTEND Internal Medicine Nephrology
PROC: 8E0W4CZ Robotic Assisted Procedure of Trunk Region, Percutaneous Endoscopic Approach (ICD-10-PCS; 2018-08-24)
PROC: 0YUA4JZ Supplement Bilateral Inguinal Region with Synthetic Substitute, Percutaneous Endoscopic Approach (ICD-10-PCS; principal; 2018-08-24 11:00)
DX: K40.00 Bilateral inguinal hernia, with obstruction, without gangrene, not specified as recurrent (principal); E87.1 Hypo-osmolality and hyponatremia; D17.9 Benign lipomatous neoplasm, unspecified; Z92.21 Personal history of antineoplastic chemotherapy